=== PATIENT | female | born 1970 ===

== ENCOUNTER 2022-08-01 09:00 | Outpatient (RCR) | payer BC, SELFPAY ==
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
[2022-07-12 14:17] VITALS: BMI 26.5
[2022-07-12 14:18] VITALS: BP 138/78; PULSE 72; TEMP 36.4
[2022-07-17 15:07] LABS: Amphetamine Screen Urine Not Detected (Not Detect); Barbiturates, Urine Not Detected (Not Detect); Benzodiazepines Screen Urine Not Detected (Not Detect); Cannabinoid Screen Urine Not Detected (Not Detect); Cocaine Screen Urine Not Detected (Not Detect); Fentanyl, urine Not Detected (Not Detect); Opiate Screen Urine Not Detected (Not Detect); Phencyclidine Screen Urine Not Detected (Not Detect)
--- NOTE | 2022-07-18 17:11 | P.PNPSP_ITS ---
Subjective Subjective Date of Service: 07/18/22 Reason For Visit: depression,anxiety Interim History: Patient reports Trazodone was effective with sleep. Some side effects initially, such as grogginess up on waking and dizziness, however those have subsided. Reporting some anxiety related to simple tasks and decisions, feels it has worsened over the last week. Tolerating prozac increase. Overall reports she is hopeful and feels like she is in a better place compared to admission. Discussed alcohol use--none since April 25. Still experiencing cravings. Declines any resources related to this at this time. Review of Systems Constitutional: Reports as per HPI and Reports no additional constitutional complaints Mental Status Exam Mental Status Exam Patient Appearance: Well Grooomed and Appropriate Level of Consciousness: Awake and Appropriate Patient Behavior: Appropriate and Talkative Mood Description: Appropriate and Anxious Affect Description: Appropriate and Anxious Speech Pattern: Clear Thought Process: Intact and Goal Oriented Thought Content: positive for Intact Judgement: Good Diagnostics Vital Signs (24Hr): BMI result Body Mass Index 26.5 Labs Labs: Laboratory Results - last 48 hr 07/17/22 09:30 Urine Opiates Screen Not Detected Urine Fentanyl Screen Not Detected Ur Barbiturates Screen Not Detected Ur Phencyclidine Scrn Not Detected Ur Amphetamines Screen Not Detected U Benzodiazepines Scrn Not Detected Urine Cocaine Screen Not Detected U Marijuana (THC) Screen Not Detected Assessment & Plan Assessment & Plan (1) MDD (major depressive disorder), recurrent episode, severe: Status: Acute Code(s): F33.2 - Major depressive disorder, recurrent severe without psychotic features Assessment and Plan: * no change to current regimen * encouraged to check in if worrying thoughts worsened * follow up as needed Certification I certify that partial hospital treatment is medically necessary due to the symptoms and problems resulting from the patient's mental illness and the failure to treat the patient at the partial hospital level of care would likely result in the patient requiring inpatient psychiatric care which could not be prevented at a less intensive level of care. I spent minutes with the patient and/or on the patient floor today, greater than?50% of which was spent counseling/coordinating care. Discharge Plan Discharge Attending provider: Eugene Elkins Medications: New trazodone 50 mg tablet 50 mg PO BEDTIME PRN (Reason: insomnia) 30 Days Qty: 45 0RF Rx Instructions: may also take 2 tabs as needed for continued insomnia No Action fluoxetine [Prozac] 40 mg Capsule 40 mg PO DAILY lorazepam [Ativan] 1 mg Tablet 1 mg PO BID PRN (Reason: Anxiety) melatonin 5 mg Tablet 5 mg PO BEDTIME PRN (Reason: Insomnia)
--- NOTE | 2022-07-25 13:00 | HO.PHPPROGNO ---
Subjective Subjective Date of Service: 07/25/22 Reason For Visit: depression,anxiety Medical Problems Affecting Mental Status: No Interim History: Reports anxiety has increased. Thoughts are more scattered. Feels less depressed. No SI. No alcohol since May 01. Would like to decrease Prozac, add something for anxiety. Medication Compliance: Yes Side effects from medications: Yes (Increased anxiety, related to increased Prozac dosing) Attending Groups: Yes Review of Systems Acute medical concerns: No Medical Review of Systems: unchanged Review of Systems Review of Systems Yes all other systems are reviewed and are negative Constitutional: Reports no additional constitutional complaints Mental Status Exam Mental Status Exam Narrative: NAD Patient Appearance: Well Grooomed and Appropriate Level of Consciousness: Appropriate Patient Behavior: Appropriate, Cooperative and Good Eye Contact Mood Description: Anxious Affect Description: Anxious Patient Cognition Impaired: No Ability to Follow Directions: Good Speech Pattern: Clear and Appropriate Memory Description: Intact Hallucinations: None Delusions: Not Present Thought Process: Intact and Goal Oriented Thought Content: positive for Intact Depressive Symptoms: Increased Anxiety, Diff. Making Decisions, Loss of Int. in Activity and Feelings of Guilt Judgement: Fair Diagnostics Vital Signs (24Hr): BMI result Body Mass Index 26.5 Assessment & Plan Assessment & Plan (1) MDD (major depressive disorder), recurrent episode, severe: Status: Acute Code(s): F33.2 - Major depressive disorder, recurrent severe without psychotic features Assessment and Plan: Reports anxiety has increased. Thoughts are more scattered. Believes that these symptoms are coinciding with recent increased dosing of Prozac from 20 mg to 40 mg. Feels less depressed. No SI, no safety concerns. No alcohol since May 01. Would like to decrease Prozac, add something for anxiety. Discussed options in detail, medication education provided, including risks and benefits of each medication. Discussed adding p.r.n. hydroxyzine, starting scheduled BuSpar. Patient was in agreement with plan to utilize p.r.n. hydroxyzine while waiting for BuSpar to take effect. (2) Anxiety: Status: Acute Code(s): F41.9 - Anxiety disorder, unspecified (3) Alcohol use disorder, moderate, in early remission: Status: Acute Code(s): F10.21 - Alcohol dependence, in remission Plan 1. Continue with current [facility] plan of care. 2. Decreased fluoxetine to 20 mg daily. 3. Start BuSpar 5 mg t.i.d.. 4. Start hydroxyzine 25 mg t.i.d. p.r.n./anxiety. 5. Follow-up as per protocol. Patient educated on: diagnosis, medication risk/benefits, substance abuse and therapeutic strategies Informed Consent: understands Reason for contiued partial hosp. stay Substantial Risk for: harm to self, inability to function and med/psych decompensation Certification I certify that partial hospital treatment is medically necessary due to the symptoms and problems resulting from the patient's mental illness and the failure to treat the patient at the partial hospital level of care would likely result in the patient requiring inpatient psychiatric care which could not be prevented at a less intensive level of care. I spent minutes with the patient and/or on the patient floor today, greater than?50% of which was spent counseling/coordinating care. Discharge Plan Discharge Attending provider: Eugene Elkins Medications: New trazodone 50 mg tablet 50 mg PO BEDTIME PRN (Reason: insomnia) 30 Days Qty: 45 0RF Rx Instructions: may also take 2 tabs as needed for continued insomnia buspirone 5 mg tablet 5 mg PO TID Qty: 21 0RF hydroxyzine pamoate 25 mg capsule 25 mg PO TID PRN (Reason: anxiety) Qty: 21 0RF No Action fluoxetine [Prozac] 40 mg Capsule 40 mg PO DAILY lorazepam [Ativan] 1 mg Tablet 1 mg PO BID PRN (Reason: Anxiety) melatonin 5 mg Tablet 5 mg PO BEDTIME PRN (Reason: Insomnia)
--- NOTE | 2022-08-01 11:55 | HO.PHPPROGNO ---
Subjective Subjective Date of Service: 08/01/22 Reason For Visit: depression,anxiety Medical Problems Affecting Mental Status: No Interim History: Reports less depressed. Feels the lower dose of Prozac 20mg is working well. Less anxious, states hydroxyzine is helping. Taking BuSpar, no side effects reported. No SI, no safety concerns. Medication Compliance: Yes Side effects from medications: No Attending Groups: Yes Review of Systems Medical Review of Systems: unchanged Review of Systems Review of Systems Yes all other systems are reviewed and are negative Constitutional: Reports no additional constitutional complaints Mental Status Exam Mental Status Exam Narrative: NAD Patient Appearance: Well Grooomed and Appropriate Level of Consciousness: Appropriate Patient Behavior: Appropriate, Cooperative and Good Eye Contact Mood Description: Depressed (improving) and Anxious (improving) Affect Description: Anxious Patient Cognition Impaired: No Ability to Follow Directions: Excellent Speech Pattern: Clear and Appropriate Memory Description: Intact Hallucinations: None Delusions: Not Present Thought Process: Intact and Linear Thought Content: positive for Intact and positive for Linear Depressive Symptoms: Loss of Int. in Activity and Feelings of Guilt Judgement: Fair Diagnostics Vital Signs (24Hr): BMI result Body Mass Index 26.5 Assessment & Plan Assessment & Plan (1) MDD (major depressive disorder), recurrent episode, severe: Status: Acute Code(s): F33.2 - Major depressive disorder, recurrent severe without psychotic features Assessment and Plan: Reports less depressed. Feels the lower dose of Prozac 20mg is working well. Less anxious, states hydroxyzine is helping. Like to remain taking hydroxyzine at this time. Taking BuSpar, no side effects reported. Would like to continue at current dose. No SI, no safety concerns. (2) Anxiety: Status: Acute Code(s): F41.9 - Anxiety disorder, unspecified (3) Alcohol use disorder, moderate, in early remission: Status: Acute Code(s): F10.21 - Alcohol dependence, in remission Assessment and Plan: Continues to abstain from alcohol use. Discussed various types of support groups, including 12 step, smart recovery, secular and Confucianism based groups. Plan 1. Continue with current [facility] plan of care. 2. Thirty day supply of BuSpar, hydroxyzine, trazodone, Prozac sent to pharmacy. 3. Follow-up as per protocol. Patient educated on: diagnosis, medication risk/benefits, substance abuse and therapeutic strategies Informed Consent: understands Reason for contiued partial hosp. stay Substantial Risk for: inability to function and med/psych decompensation Certification I certify that partial hospital treatment is medically necessary due to the symptoms and problems resulting from the patient's mental illness and the failure to treat the patient at the partial hospital level of care would likely result in the patient requiring inpatient psychiatric care which could not be prevented at a less intensive level of care. I spent minutes with the patient and/or on the patient floor today, greater than?50% of which was spent counseling/coordinating care. Discharge Plan Discharge Attending provider: Eugene Elkins Medications: New buspirone 5 mg tablet 5 mg PO TID Qty: 90 0RF hydroxyzine pamoate 25 mg capsule 25 mg PO TID PRN (Reason: anxiety) Qty: 90 0RF trazodone 50 mg tablet 50 mg PO BEDTIME PRN (Reason: sleep) Qty: 30 0RF fluoxetine [Prozac] 20 mg capsule 20 mg PO DAILY Qty: 30 0RF Discontinued fluoxetine [Prozac] 40 mg Capsule 40 mg PO DAILY No Action lorazepam [Ativan] 1 mg Tablet 1 mg PO BID PRN (Reason: Anxiety) melatonin 5 mg Tablet 5 mg PO BEDTIME PRN (Reason: Insomnia)
== END 2022-08-05 23:59 | disposition home or self-care (01) ==
LOC: HO.PHPA 09:00
PROVIDERS: Nurse Practitioner Psychiatric/Mental Health; Visit Provider Psychiatry & Neurology Psychiatry
DX: F33.2 Major depressive disorder, recurrent severe without psychotic features (principal); F41.9 Anxiety disorder, unspecified; F10.21 Alcohol dependence, in remission; Z79.899 Other long term (current) drug therapy
CPT/HCPCS: 80307; 90791; 90853